=== PATIENT | female | born 1975 | race Asian ===

== ENCOUNTER 2016-07-24 13:34 | Outpatient (CLI) | payer MEDICAID | END 2016-07-24 13:35 | disposition home or self-care (01) | DX: Z12.39 Encounter for other screening for malignant neoplasm of breast (principal); Z80.3 Family history of malignant neoplasm of breast ==

== ENCOUNTER 2018-08-10 20:42 | Outpatient (CLI) | payer OTHER ==
--- NOTE | 2018-08-10 23:04 | Ultrasound Report ---
Reason: UTERINE ANOMALY Procedure Date: 08/10/2018 Accession Number: [id number] / [id number] Procedure: US - Pelvic w/Transvaginal CPT Code: FULL RESULT: EXAM: PELVIC ULTRASOUND EXAM DATE: 08/10/2018 08:58 PM. CLINICAL HISTORY: Firm tender uterus. Unable to locate cervix. Painful menses. COMPARISON: None. TECHNIQUE: Realtime transabdominal pelvic scan performed to identify the uterus and adnexa and as an overview of other pelvic structures, followed by transvaginal scan to provide greater detail of the uterus and adnexa, with static image documentation. FINDINGS: Uterus: 8.5 x 6.3 x 10.2 cm, volume 289 cc. Retroverted position. Heterogeneous myomatous uterus. Masses: Right-sided fundal fibroid which is pedunculated or subserosal. This measures 5.3 x 5.2 x 5.0 cm. Endometrium: 10 mm. Normal. Cervix: Unremarkable. Right Ovary: 4.3 x 3.1 x 4.1 cm, volume 28.5 cc. Cyst measuring 2.5 x 1.5 x 2.6 cm. Normal Doppler flow signal is seen in the right ovary. Left Ovary: 3.4 x 2.3 x 2.4 cm, volume 9.7 cc. Normal echotexture and blood flow. Free Fluid: None. Other: None. IMPRESSION: 1. Heterogeneous myomatous uterus with 5 cm fundal fibroid. This is pedunculated or subserosal. 2. Endometrial thickness is normal at 10 mm. 3. Right ovarian cyst. Left ovary appears normal. RADIA
== END 2018-08-10 20:43 | disposition home or self-care (01) ==
LOC: DI 20:42
PROVIDERS: ATTEND Nurse Practitioner Gerontology
DX: Q51.9 Congenital malformation of uterus and cervix, unspecified (principal); N94.6 Dysmenorrhea, unspecified; D25.2 Subserosal leiomyoma of uterus; N83.201 Unspecified ovarian cyst, right side; R93.89 Abnormal findings on diagnostic imaging of other specified body structures
CPT/HCPCS: 76830; 76856

== ENCOUNTER 2019-06-28 10:37 | Emergency (ER) | payer MEDICAID, OTHER ==
--- NOTE | 2019-06-28 10:58 | ED Physician Documentation ---
PD HPI LOWER EXT INJURY - Stated complaint Stated Complaint: RT FOOT INJURY - Chief complaint Chief Complaint: Ext Problem - History obtained from History obtained from: Patient - History of Present Illness PD HPI LOW EXT INJURY LOCATION: Right, Ankle Type of injury: Twist (She was preparing food at work when felt a pain in the lateral dorsal aspect of the foot. She had pivoted on it while holding some objects but did not have an inversion or direct impact. She started hurting at the foot and it continues to hurt with weightbearing and walking. She denies any prior similar episodes.) Timing - onset: Today Timing - duration: Hours Timing - details: Abrupt onset, Still present Improved by: Rest Worsened by: Moving (inversion and dorsiflexion), Other. No: Palpating Associated symptoms: No: Weakness, Numbness, Swelling Similar symptoms before: Has not had sx before (No prior history of arthritis or ankle problems or gout) Recently seen: Not recently seen Review of Systems Constitutional: denies: Fever, Chills, Myalgias Throat: denies: Sore throat Respiratory: denies: Cough Skin: denies: Rash, Lesions Musculoskeletal: denies: Extremity swelling PD PAST MEDICAL HISTORY - Past Medical History Musculoskeletal: None - Present Medications Home Medications: Ambulatory Orders Medication Instructions Recorded Confirmed Lisinopril [Prinivil] 10 mg PO DAILY 06/28/19 06/28/19 Naproxen 500 mg PO BID #20 tablet 06/28/19 - Allergies Allergies/Adverse Reactions: Allergies Allergy/AdvReac Type Severity Reaction Status Date / Time No Known Drug Allergies Allergy Verified 06/28/19 10:44 PD ED PE NORMAL - Vitals Vital signs reviewed: Yes - General General: Alert and oriented X 3, No acute distress (Slight limping gait with walk.), Well developed/nourished - Derm Derm: Normal color, Warm and dry, No rash - Extremities Extremities: No edema, No calf tenderness / cord, Other (The right ankle is tender along the anterolateral aspect more of the proximal foot. The malleolar line themselves are not tender. There is no redness swelling or warmth. There is some tenderness with inversion stress but no laxity. The medial aspect is not tender. The Achilles is firm and not tender. There is no edema noted. There is good color pulses and capillary refill.) - Neuro Neuro: Alert and oriented X 3, No motor deficit, No sensory deficit Results - Vitals Vitals: Vital Signs - 24 hr 06/28/19 06/28/19 10:42 12:21 Temperature 36.4 C L Heart Rate 91 86 Respiratory 18 16 Rate Blood Pressure 151/84 H 145/91 H O2 Saturation 100 99 Oxygen O2 Source Room air - Rads (name of study) right ankle Radiology: Prelim report reviewed (No fractures or acute process.), See rad report PD MEDICAL DECISION MAKING - ED course Complexity details: reviewed results, considered differential (Seems likely a strain or sprain of the ankle. No indications for gout or inflammatory process.), d/w patient Departure - Departure Disposition: 01 Home, Self Care Clinical Impression: Acute right ankle pain, Right ankle tendonitis Condition: Stable Record reviewed to determine appropriate education?: Yes Instructions: Tendinitis Foot, Tendonitis Foot Tx Follow-Up: Pilar Villegas ARNP [Primary Care Provider] - Prescriptions: Naproxen 500 mg PO BID #20 tablet Comments: Your x-ray shows a small spur by the heel but that is not really where you are hurting. The bones otherwise appear normal. It sounds likely to be some tendinitis (inflamed muscles and tendons) in the ankle. Use the ankle supporter when up and around for the next week or so. Off work for couple of days and use anti-inflammatories such as naproxen twice daily for the next 7 to 10 days. Add Tylenol if needed for pain. Recheck if not improved over the next few days and resolved within a week. Forms: Activity restrictions Discharge Date/Time: 06/28/19 12:21
[2019-06-28] MEDS ORDERED: ACETAMINOPHEN 325 MG TABLET PO STA (11:21)
--- NOTE | 2019-06-28 11:50 | XRAY Report ---
Reason: onset ankle pain this morning Procedure Date: 06/28/2019 Accession Number: [id number] / [id number] Procedure: XR - Ankle 3 View RT CPT Code: Final Report FULL RESULT: EXAM: RIGHT ANKLE RADIOGRAPHY 3 VIEWS EXAM DATE: 06/28/2019. CLINICAL HISTORY: Onset of ankle pain this morning. Pain with weightbearing. COMPARISON: None. TECHNIQUE: AP, oblique and lateral views. FINDINGS: Bones: No fracture or other acute abnormality. 3 mm posterior plantar calcaneal spur. Joints: No subluxation. The plantar arch appears accentuated. Soft Tissues: Normal. No soft tissue swelling. IMPRESSION: Normal right ankle radiography. 3 mm posterior plantar calcaneal spur. Possible pes cavus. RADIA
[2019-06-28 13:51] VITALS: BP 145/91
== END 2019-06-28 12:21 | disposition home or self-care (01) ==
LOC: ED 10:37
DX: M77.51 Other enthesopathy of right foot and ankle (principal); M77.31 Calcaneal spur, right foot; X50.1XXA Overexertion from prolonged static or awkward postures, initial encounter; Y93.G1 Activity, food preparation and clean up; Y99.0 Civilian activity done for income or pay
CPT/HCPCS: 1040M; 73610; 99283; A9270

== ENCOUNTER 2022-07-09 13:04 | Outpatient (CLI) | payer OTHER, MEDICAID ==
--- NOTE | 2022-07-10 09:28 | Mammography Report ---
BILATERAL DIGITAL SCREENING MAMMOGRAM 3D/2D: 07/09/2022 CLINICAL: Routine screening. Comparison is made to exam dated: 07/24/2016 mammogram - [facility]. Both breasts are heterogeneously dense, which may obscure small masses (category c / 51-75% glandular tissue). No significant masses, calcifications, or other findings are seen in either breast. There has been no significant interval change. IMPRESSION: NEGATIVE There is no mammographic evidence of malignancy. A 1 year screening mammogram is recommended. Based on the Tyrer Cuzick model (a risk assessment model) the patients lifetime risk is 15.0% and he r 10 year risk is 2.9%. According to the ACR, ACS, and NCCN guidelines, an annual breast MRI exam scott ng with mammogram is recommended if the patients lifetime risk is 20% or greater. This exam was interpreted at Station ID: [id number]. NOTE: For mammograms, a report in lay terms will be sent to the patient. Approximately 15% of breast malignancies will not be visualized mammographically. In the management of a palpable breast mass, a negative mammogram must not discourage biopsy of a clinically suspicious lesion. Electronically Signed By: Luz cheng/emy:07/09/2022 17:06:00 letter sent: No_Letter ACR BI-RADS Category 1: Negative 3341F PARENCHYMAL PATTERN: (D) - The breast(s) demonstrate(s) heterogeneously dense fibroglandular bola monique. BI-RADS CATEGORY: (1) - 1 Mammogram [id number] 1 year screening LATERALITY: (B)
== END 2022-07-09 13:05 | disposition home or self-care (01) ==
LOC: DI.N 13:04
DX: Z12.31 Encounter for screening mammogram for malignant neoplasm of breast (principal)

== ENCOUNTER 2022-07-09 21:24 | Outpatient (CLI) | payer OTHER, MEDICAID ==
--- NOTE | 2022-07-10 09:22 | Ultrasound Report ---
PROCEDURE: Pelvic w/Transvaginal INDICATIONS: PELVIC PAIN TECHNIQUE: Real-time scanning was performed of the pelvic organs, with image documentation. Additional endovagi nal scanning was necessary due to incomplete visualization of the adnexal and endometrial structures by transabdominal scanning. COMPARISON: None. FINDINGS: Uterus: Uterus is anteverted and normal in size at 8.7 x 6.4 x 6.4 cm. The myometrium is heterogene ous. The endometrium measures 13 mm in combined thickness. Multiple uterine fibroids, most relevant as follows: -Submucosal fibroid in the mid uterine segment measuring 1.7 x 1.2 x 1.6 cm. This was not previously reported. -Subserosal fibroid at the fundus measuring 5.7 x 5.3 x 4.5 cm, previously 5.3 x 5.2 x 5 cm. Ovaries: The right ovary is not visualized due to overlying bowel gas. The left ovary measures 3.1 x 2 x 2.8 cm, with a calculated ovarian volume of 9 cc. The left ovary has a normal sonographic appea anabelle. No adnexal mass. Other: No pathologic free abdominal or pelvic fluid. IMPRESSION: Myomatous uterus. Largest fibroid measures 5.7 cm at the fundus, slightly increased in s ize compared with prior. Of note, there is a submucosal fibroid in the mid uterine segment measuring 1.7 cm. Reviewed by: Harjinder Alexis on 07/10/2022 9:20 AM PDT Approved by: Harjinder Alexis on 07/10/2022 9:20 AM PDT Station ID: [id number]
== END 2022-07-09 21:25 | disposition home or self-care (01) ==
LOC: DI 21:24
PROVIDERS: ATTEND Physician Assistant
DX: R10.2 Pelvic and perineal pain (principal); D25.0 Submucous leiomyoma of uterus; D25.2 Subserosal leiomyoma of uterus

== ENCOUNTER 2022-07-19 07:57 | Outpatient (CLI) | payer OTHER, MEDICAID ==
[2022-07-19 12:14] LABS: BASOPHILS # (AUTO) 0.1 10^3/uL (0.0-0.1); BASOPHILS % (AUTO) 0.9 %; EOSINOPHILS # (AUTO) 0.2 10^3/uL (0.0-0.7); EOSINOPHILS % (AUTO) 3.3 %; HCT - HEMATOCRIT 37.5 % (37.0-47.0); HGB - HEMOGLOBIN 11.7 g/dL (12.0-16.0); LYMPHOCYTES # (AUTO) 2.5 10^3/uL (1.5-3.5); LYMPHOCYTES % (AUTO) 43.5 %; MEAN CORPUSCULAR HEMOGLOBIN 25.9 pg (27.0-31.0); MEAN CORPUSCULAR HGB CONC 31.2 g/dL (32.0-36.0); MEAN CORPUSCULAR VOLUME 83.1 fL (81.0-99.0); MEAN PLATELET VOLUME 10.8 fL (7.9-10.8); MONOCYTES # (AUTO) 0.4 10^3/uL (0.0-1.0); NEUTROPHILS # (AUTO) 2.6 10^3/uL (1.5-6.6); NEUTROPHILS % (AUTO) 45.1 %; PLT - PLATELET COUNT 226 10^3/uL (130-450); RED BLOOD COUNT 4.51 10^6/uL (4.20-5.40); RED CELL DISTRIBUTION WIDTH 13.2 % (12.0-15.0); WHITE BLOOD COUNT 5.8 x10^3/uL (4.8-10.8)
[2022-07-19 12:33] LABS: ALBUMIN 3.9 g/dL (3.2-5.5); ALBUMIN/GLOBULIN RATIO 1.2 (1.0-2.2); ALKALINE PHOSPHATASE 48 IU/L (42-121); ALT ALANINE AMINOTRANSFERASE 18 IU/L (10-60); AST ASPARTATE AMINOTRANSFERASE 19 IU/L (10-42); BILIRUBIN,TOTAL 0.4 mg/dL (0.2-1.0); BUN - BLOOD UREA NITROGEN 13 mg/dL (6-20); CARBON DIOXIDE - CO2 26 mmol/L (21-32); CHLORIDE 109 mmol/L (101-111); CHOLESTEROL 223 mg/dL; CREATININE 0.5 mg/dL (0.4-1.0); GFR - MDRD 133 (>89); GLUCOSE 93 mg/dL (70-100); HDL CHOLESTEROL 56 mg/dL; LDL CHOLESTEROL,CALCULATED 146 mg/dL; LDL/HDL RATIO 2.6 (<4.4); POTASSIUM 4.2 mmol/L (3.5-5.0); SODIUM 140 mmol/L (135-145); TOTAL PROTEIN 7.2 g/dL (6.7-8.2); TRIGLYCERIDES 104 mg/dL; VLDL CHOLESTEROL 21 mg/dL
[2022-07-19 12:45] LABS: THYROID STIMULATING HORMONE 3.38 uIU/mL (0.34-5.60)
[2022-07-19 13:14] LABS: FOLLICLE STIMULATING HORMONE 5.17 mIU/mL
== END 2022-07-19 07:58 | disposition home or self-care (01) ==
LOC: LAB.N 07:57
PROVIDERS: ATTEND Physician Assistant
DX: I10 Essential (primary) hypertension (principal); N92.6 Irregular menstruation, unspecified
CPT/HCPCS: 36415; 80053; 80061; 83001; 83721; 84443; 85025

== ENCOUNTER 2022-08-15 09:49 | Outpatient (CLI) | payer OTHER, MEDICAID ==
[2022-08-15] MEDS ORDERED: iohexoL-300 100 ML VIAL ONE (09:55)
[2022-08-15] MEDS ORDERED: DIATR MEGLU/DIATRIZOATE SODIUM 120 ML BOTTLE ONE (09:57)
[2022-08-15] MEDS ORDERED: DIATRIZOATE MEGLU/DIATRIZO SOD 30 ML BOTTLE PO ONE (11:05)
[2022-08-15] MEDS ORDERED: iohexoL-300 100 ML VIAL IVP ONE (11:05)
--- NOTE | 2022-08-15 13:18 | CT Report ---
PROCEDURE: ABDOMEN/PELVIS W INDICATIONS: ABD PAIN CONTRAST: 100ml Omnipaque 300 TECHNIQUE: After the administration of IV and oral contrast, 5 mm thick sections acquired from the diaphragms to the symphysis. 5 mm thick coronal and sagittal reformats were acquired. For radiation dose reducti on, the following was used: automated exposure control, adjustment of mA and/or kV according to alex ent size. COMPARISON: None FINDINGS: Image quality: Good Lower chest: Basal atelectasis. Heart size is within normal limits. Solid organs: Liver is unremarkable. Gallbladder is unremarkable. No pathologic dilation of the bilia ry tree or pancreatic duct. No splenomegaly. No adrenal nodules. No hydronephrosis. Vessels and lymph nodes: No abdominal aortic aneurysm. No pathologic adenopathy by size criteria. Bowel and peritoneum: Distal gastric wall thickening and narrowing with suspected submucosal edema, o therwise difficult to evaluate on CT due to underdistention. No evidence of small bowel obstruction. There is passage of oral contrast into the small bowel. Normal appendix. No pathologic ascites. Body wall: Tiny fat-containing umbilical hernia. Pelvis: Bladder is unremarkable. Fibroid uterus. The endometrium is displaced toward the left. Reprod uctive organs are better evaluated on recent ultrasound. Bones: No acute or suspicious osseous finding. IMPRESSION: Submucosal edema and wall thickening of the distal stomach/pylorus, not well evaluated on CT. Conside r endoscopy depending on clinical context. Differential includes peptic ulcer disease/gastritis, yane g other etiologies. Fibroid uterus, with a possible submucosal component as seen on prior ultrasound. Reproductive organs are better evaluated on prior ultrasound. If further anatomic delineation is desired, consider pelvi c MRI. Other findings as above. Reviewed by: Magdy Paredes MD on 08/15/2022 1:16 PM PDT Approved by: Magdy Paredes MD on 08/15/2022 1:16 PM PDT Station ID: [id number]
== END 2022-08-15 09:50 | disposition home or self-care (01) ==
LOC: LAB 09:49
PROVIDERS: ATTEND Physician Assistant
DX: R10.31 Right lower quadrant pain (principal); D25.9 Leiomyoma of uterus, unspecified
CPT/HCPCS: 74177; Q9963; Q9967

== ENCOUNTER 2022-09-12 07:49 | Outpatient (CLI) | payer OTHER, MEDICAID | END 2022-09-12 07:50 | disposition home or self-care (01) | LOC: DI 07:49 | PROVIDERS: ATTEND Physician Assistant | DX: I10 Essential (primary) hypertension (principal) | CPT/HCPCS: 93306 ==

== ENCOUNTER 2022-12-03 09:26 | Day surgery (SDC) | payer OTHER, MEDICAID ==
[2022-12-03] MEDS ORDERED: LACTATED RINGERS 1,000 ML IV ONE ×2 (09:34→10:48)
--- NOTE | 2022-12-03 09:45 | ANESTHESIA ---
Pre-Anesthesia VS, & Labs - Diagnosis abnormal CT, screening - Procedure EGD, cscope Height: 5 ft 5 in Weight (kg): 72 kg Body Mass Index: 26.4 BMI Classification: Overweight - NPO >8 hours Last Fluid Intake: am prep - Is Patient ?: No - Lab Results Lab results reviewed: Yes Home Medications and Allergies lisinopriL [Prinivil] 10 mg PO DAILY 06/28/19 Allergies/Adverse Reactions: Allergies Allergy/AdvReac Type Severity Reaction Status Date / Time No Known Drug Allergies Allergy Verified 06/28/19 10:44 Anes History & Medical History - Anesthetic History Anesthesia Complications: reports: No previous complications Family history of Anesthesia Complications: Denies Family history of Malignant Hyperthermia: Denies - Medical History Cardiovascular: reports: Hypertension, High cholesterol Musculoskeletal: reports: None - Surgical History General: reports: Colonoscopy Exam General: Alert, Oriented x3, Cooperative Mouth Openin Fingerbreadth Neck Mobility: Normal Mallampati classification: II Thyromental Distance: 4-6 cm Respiratory: Lungs clear, Normal breath sounds, No respiratory distress Cardiovascular: Regular rate Neurological: Normal speech Mental/Cognitive Status: Alert/Oriented X3, Normal for patient Cognitive Status: Within normal limits Plan Anesthesia Type: Total IV Consent for Procedure(s) Verified and Reviewed: Yes Code Status: Attempt Resuscitation ASA classification: 2-Mild systemic disease Is this case an emergency?: No
[2022-12-03 09:52] LABS: HCG UR QUAL NEGATIVE
[2022-12-03] MEDS ORDERED: LIDOCAINE-PF 2% 10 ML AMP SUBQ ONE (10:17)
[2022-12-03] MEDS ORDERED: PROPOFOL 500 MG/50 ML 500 MG/50 ML VIAL ONE (10:17)
[2022-12-03] MEDS ORDERED: PROPOFOL 200 MG/20 ML VIAL IVP ONE (10:36)
[2022-12-03 11:35] VITALS: BP 126/95; O2SAT 99
--- NOTE | 2022-12-03 11:43 | ANESTHESIA POST OP EVALUATION ---
Anesthesia Post Eval - Post Anesthesia Eval Vitals: Last Vital Signs Temp 36.0 C L 12/03/22 11:16 Pulse 73 12/03/22 11:25 Resp 18 12/03/22 11:25 BP 126/95 H 12/03/22 11:25 Pulse Ox 99 12/03/22 11:25 O2 Flow Rate CV Function Including HR & BP: Stable Pain Control: Satisfactory Nausea & Vomiting: Negative Mental Status: Baseline Respiratory Status: Airway Patent Hydration Status: Satisfactory Anesthesia Complications: None
== END 2022-12-03 09:27 | disposition home or self-care (01) ==
LOC: SDS 09:26
PROVIDERS: ATTEND Surgery
DX: Z12.11 Encounter for screening for malignant neoplasm of colon (principal); R93.3 Abnormal findings on diagnostic imaging of other parts of digestive tract; K64.9 Unspecified hemorrhoids; I10 Essential (primary) hypertension; Z32.02 Encounter for pregnancy test, result negative
CPT/HCPCS: 43235; 45378; 81025; J7120

== ENCOUNTER 2023-06-13 07:42 | Outpatient (CLI) | payer OTHER, MEDICAID ==
[2023-06-13 11:55] LABS: BASOPHILS # (AUTO) 0.1 10^3/uL (0.0-0.1); EOSINOPHILS # (AUTO) 0.1 10^3/uL (0.0-0.7); EOSINOPHILS % (AUTO) 1.9 %; HCT - HEMATOCRIT 39.7 % (37.0-47.0); HGB - HEMOGLOBIN 12.1 g/dL (12.0-16.0); LYMPHOCYTES # (AUTO) 2.2 10^3/uL (1.5-3.5); LYMPHOCYTES % (AUTO) 34.3 %; MEAN CORPUSCULAR HEMOGLOBIN 24.5 pg (27.0-31.0); MEAN CORPUSCULAR HGB CONC 30.5 g/dL (32.0-36.0); MEAN CORPUSCULAR VOLUME 80.5 fL (81.0-99.0); MEAN PLATELET VOLUME 10.4 fL (7.9-10.8); MONOCYTES # (AUTO) 0.4 10^3/uL (0.0-1.0); MONOCYTES % (AUTO) 6.4 %; NEUTROPHILS # (AUTO) 3.5 10^3/uL (1.5-6.6); NEUTROPHILS % (AUTO) 56.2 %; PLT - PLATELET COUNT 243 10^3/uL (130-450); RED BLOOD COUNT 4.93 10^6/uL (4.20-5.40); RED CELL DISTRIBUTION WIDTH 15.5 % (12.0-15.0); WHITE BLOOD COUNT 6.3 x10^3/uL (4.8-10.8)
[2023-06-13 12:34] LABS: ALBUMIN 4.3 g/dL (3.2-5.5); ALBUMIN/GLOBULIN RATIO 1.6 (1.0-2.2); ALKALINE PHOSPHATASE 50 IU/L (42-121); ALT ALANINE AMINOTRANSFERASE 20 IU/L (10-60); AST ASPARTATE AMINOTRANSFERASE 16 IU/L (10-42); BILIRUBIN,TOTAL 0.4 mg/dL (0.2-1.0); BUN - BLOOD UREA NITROGEN 12 mg/dL (6-20); CALCIUM 9.5 mg/dL (8.5-10.3); CARBON DIOXIDE - CO2 26 mmol/L (21-32); CHLORIDE 107 mmol/L (101-111); CHOL/HDL RATIO 4.3 (<4.4); CHOLESTEROL 213 mg/dL; CREATININE 0.5 mg/dL (0.6-1.3); GFR - MDRD 132 (>89); GLUCOSE 92 mg/dL (74-104); HDL CHOLESTEROL 49 mg/dL; LDL CHOLESTEROL,CALCULATED 139 mg/dL; LDL/HDL RATIO 2.8 (<4.4); POTASSIUM 4.2 mmol/L (3.5-4.5); SODIUM 137 mmol/L (135-145); TRIGLYCERIDES 126 mg/dL (48-352); VLDL CHOLESTEROL 25 mg/dL
== END 2023-06-13 07:43 | disposition home or self-care (01) ==
LOC: LAB.N 07:42
PROVIDERS: ATTEND Physician Assistant
DX: I10 Essential (primary) hypertension (principal); E78.5 Hyperlipidemia, unspecified
CPT/HCPCS: 36415; 80053; 80061; 83721; 84443; 85025

== ENCOUNTER 2023-06-19 12:26 | Outpatient (CLI) | payer OTHER, MEDICAID ==
--- NOTE | 2023-06-19 17:58 | Ultrasound Report ---
PROCEDURE: Chest INDICATIONS: PALP MASS -LIPOMA LEFT UPPER BACK TECHNIQUE: Real-time scanning was performed, and a suitable site was marked by the production manager for thoracentesis to be performed by the referring clinician. COMPARISON: None. FINDINGS: Left upper back palpable lump corresponds to a well-circumscribed isoechoic lesion measuring 3.8 x 3 x 0.9 cm with no internal vascularity. IMPRESSION: Left upper back palpable lump corresponds to a benign lipoma measuring 3.8 x 3 x 0.9 cm. Reviewed by: Tonie Benítez MD on 06/19/2023 5:57 PM PST Approved by: Tonie Benítez MD on 06/19/2023 5:57 PM PST Station ID: [id number]
== END 2023-06-19 12:27 | disposition home or self-care (01) ==
LOC: DI 12:26
PROVIDERS: ATTEND Physician Assistant
DX: D17.1 Benign lipomatous neoplasm of skin and subcutaneous tissue of trunk (principal)

== ENCOUNTER 2023-08-28 09:22 | Day surgery (SDC) | payer OTHER, MEDICAID ==
[~2023-08-28 09:22] MED LIST: BUPIVACAINE 0.25% PF 30 ML VIAL ONE; LIDOCAINE 1%-EPI 1:100000 20 ML MDV ONE
[2023-08-28 09:47] LABS: HCG UR QUAL NEGATIVE
[2023-08-28] MEDS: LACTATED RINGERS 1,000 ML IV ONE ×2 (10:07→10:23)
--- NOTE | 2023-08-28 10:27 | ANESTHESIA ---
Pre-Anesthesia VS, & Labs - Diagnosis left posterior shoulder lipoma - Procedure left posterior shoulder lipoma excision Vital Signs: Temp Pulse Resp BP Pulse Ox O2 Flow Rate 36.1 C L 69 16 146/78 H 94 08/28/23 10:24 08/28/23 10:24 08/28/23 10:24 08/28/23 10:24 08/28/23 10:24 Height: 5 ft 5 in Weight (kg): 68 kg Body Mass Index: 24.9 BMI Classification: Normal - NPO >8 hours - Is Patient ?: No Home Medications and Allergies lisinopriL [Prinivil] 20 mg PO DAILY 06/28/19 Allergies/Adverse Reactions: Allergies Allergy/AdvReac Type Severity Reaction Status Date / Time No Known Drug Allergies Allergy Verified 06/28/19 10:44 Anes History & Medical History - Anesthetic History Anesthesia Complications: reports: No previous complications - Medical History Cardiovascular: reports: Hypertension Pulmonary: reports: None Gastrointestinal: reports: None Urinary: reports: None Neuro: reports: None Musculoskeletal: reports: None Endocrine/Autoimmune: reports: None Skin: reports: None Smoking Status: Never smoker Psychosocial: reports: No issues indicated History of Cancer?: No - Surgical History General: reports: Colonoscopy Exam General: Alert, Oriented x3, Cooperative, No acute distress Dental: WNL Mouth Openin Fingerbreadth Neck Mobility: Normal Mallampati classification: II Thyromental Distance: 4-6 cm Mental/Cognitive Status: Alert/Oriented X3, Normal for patient Plan Anesthesia Type: MAC Consent for Procedure(s) Verified and Reviewed: Yes Code Status: Attempt Resuscitation ASA classification: 2-Mild systemic disease Is this case an emergency?: No
[2023-08-28] MEDS ORDERED: fentaNYL 100 MCG/2 ML VIAL ONE (10:34)
[2023-08-28] MEDS ORDERED: MIDAZOLAM 2 MG/2 ML VIAL ONE (10:34)
[2023-08-28] MEDS ORDERED: PROPOFOL 500 MG/50 ML 500 MG/50 ML VIAL ONE (10:34)
--- NOTE | 2023-08-28 10:35 | HISTORY & PHYSICAL EXAMINATION ---
Chief Complaint - Chief Complaint Chief Complaint: left posterior shoulder lump History of Present Illness - History Obtained From Records Reviewed: yes History obtained from: pt Exam Limitations: none - History of Present Illness HPI Comment/Other: growing and now tender left posterior shoulder lipoma History - Past Medical History Cardiovascular: reports: Hypertension Respiratory: reports: None Neuro: reports: None Endocrine/Autoimmune: reports: None GI: reports: None : reports: None Psych: reports: Claustrophobia Musculoskeletal: reports: None Derm: reports: None MRSA Hx?: No - Past Surgical History General: reports: Colonoscopy Meds/Allgy - Home Medications Home Medications: Ambulatory Orders Medication Instructions Recorded Confirmed lisinopriL [Prinivil] 20 mg PO DAILY 06/28/19 08/28/23 - Allergies Allergies/Adverse Reactions: Allergies Allergy/AdvReac Type Severity Reaction Status Date / Time No Known Drug Allergies Allergy Verified 06/28/19 10:44 Review of Systems - Other Findings Other Findings: 10 pt ros as above otherwise unremarkable Exam - Vital Signs Vital Signs: Vital Signs x48h Temp Pulse Resp BP Pulse Ox 08/28/23 10:24 36.1 C L 69 16 146/78 H 94 08/28/23 09:53 36.3 C L 68 16 158/90 H 100 - Physical Exam General Appearance: positive: No acute distress, Alert Eyes Bilateral: positive: PERRL, EOMI ENT: positive: No signs of dehydration Neck: positive: No JVD, Trachea midline Respiratory: positive: No respiratory distress Cardiovascular: positive: Regular rate & rhythm Skin: positive: Other (left posterior shoulder 3.5 cm lipoma) Neurologic/Psychiatric: positive: Oriented x3 Conclusion/Plan - Problem List (1) Lipoma Conclusion/Plan: growing and now symptomatic posterior left shoulder lipoma plan excision. parq held and consent obtained
[2023-08-28] MEDS: BUPIVACAINE 0.25% PF 30 ML VIAL SUBQ ONE ×2 (11:27)
[2023-08-28] MEDS: LIDOCAINE MPF 1%-EPI 1:200000 30 ML VIAL SUBQ ONE ×2 (11:28)
[2023-08-28] MEDS ORDERED: HYDROcod/ACETAM 5/325 MG TABLET PO PRN (12:03)
--- NOTE | 2023-08-28 12:08 | OPERATIVE REPORT ---
Operative Report - General Procedure Date: 08/28/23 Planned Procedure: excision left upper back/ posterior shoulder lipoma Pre-Op Diagnosis: 3.5 cm left posterior shoulder lipoma Procedure Performed: excision 3.5 x 4.5 cm left upper back/ posterior shoulder subcutaneous lipoma 4 cm intermediate repair Post Op Diagnosis: 3.5 x 4.5 subcutaneous lipoma - Procedure Note Primary Surgeon: sharon valdez Anesthesia Technique: Local, MAC Pathology: benign/ not sent Estimated Blood Loss (mL): 2 Drain/Tube Type: Other (none) Indications: growing and painful lipoma Findings: as above Complications: none - Other Other Information/Narrative: The patient was properly identified brought to the operating room and placed in supine position. She was carefully positioned right lateral decubitus. Monitored anesthesia care and IV sedation was given. She was prepped and draped in a sterile fashion. Antibiotics were not given. A vertical 4 cm incision was made directly over the palpable mass. Dissection proceeded sharply down to the lipoma. The lipoma was deep adherent to fascia. It was also quite soft. With gentle retraction it was removed in its entirety with cutting current cautery. Additional scar tissue surrounding the lipoma was removed. Hemostasis was assured. Intermediate repair was performed. Deep subcutaneous interrupted 2-0 Vicryl sutures were placed. Buried interrupted subdermal 3-0 Vicryl sutures were then placed. Skin was closed with a running 4-0 Monocryl subcuticular suture. Steri-Strips and dressing were applied. She tolerated the procedure very well.
[2023-08-28 12:24] VITALS: O2SAT 99
[2023-08-28 12:54] VITALS: BP 152/84
== END 2023-08-28 09:23 | disposition home or self-care (01) ==
LOC: SDS 09:22
PROVIDERS: ATTEND Surgery
DX: D17.1 Benign lipomatous neoplasm of skin and subcutaneous tissue of trunk (principal); I10 Essential (primary) hypertension
CPT/HCPCS: 21931; 81025; J7120

== ENCOUNTER 2023-11-24 10:46 | Outpatient (CLI) | payer OTHER, MEDICAID ==
--- NOTE | 2023-11-25 07:46 | Mammography Report ---
BILATERAL DIGITAL SCREENING MAMMOGRAM 3D/2D: 11/24/2023 CLINICAL: Routine screening. Comparison is made to exams dated: 07/09/2022 mammogram and 07/24/2016 mammogram - [facility]. Both breasts are heterogeneously dense, which may obscure small masses (category c / 51-75% glandular tissue). No significant masses, calcifications, or other findings are seen in either breast. There has been no significant interval change. IMPRESSION: NEGATIVE There is no mammographic evidence of malignancy. A 1 year screening mammogram is recommended. Based on the Tyrer Cuzick model (a risk assessment model) the patient's lifetime risk is 15.1% and he r 10 year risk is 3.1%. According to the ACR, ACS, and NCCN guidelines, an annual breast MRI exam scott ng with mammogram is recommended if the patient's lifetime risk is 20% or greater. This exam was interpreted at Station ID: [id number]. NOTE: For mammograms, a report in lay terms will be sent to the patient. Approximately 15% of breast malignancies will not be visualized mammographically. In the management of a palpable breast mass, a negative mammogram must not discourage biopsy of a clinically suspicious lesion. Electronically Signed By: Angus gudino/emy:11/24/2023 15:24:24 letter sent: No_Letter ACR BI-RADS Category 1: Negative 3341F PARENCHYMAL PATTERN: (D) - The breast(s) demonstrate(s) heterogeneously dense fibroglandular bola monique. BI-RADS CATEGORY: (1) - 1 RECOMMENDATION: (ANNUAL) - Recommend routine annual screening mammography. [id number] 1 year screening LATERALITY: (B)
== END 2023-11-24 10:47 | disposition home or self-care (01) ==
LOC: DI.N 10:46
DX: Z12.31 Encounter for screening mammogram for malignant neoplasm of breast (principal); R92.333 Mammographic heterogeneous density, bilateral breasts